=== PATIENT | male | born 1965 | race Caucasian/White ===

== ENCOUNTER → 2023-04-13 | Outpatient (CLI) | payer OTHER ==
[~2023-04-13] MED LIST: AMOXICILLIN 50500 MG PO; CRUTCHES MC; NORCO 325 MG-51 TAB PO; PREDNISONE20 MG PO; TAMIFLU 75MG75 MG PO; ZITHROMAX Z PA250 MG PO
== END ==
LOC: COL.RAD 11:56
DX: N32.89 Other specified disorders of bladder (principal); R97.20 Elevated prostate specific antigen [PSA]
CPT/HCPCS: A9575